=== PATIENT | female | born 1965 | race Caucasian/White ===

== ENCOUNTER → 2017-08-23 | Outpatient (CLI) | payer BC ==
[~2017-08-23] MED LIST: ACET-1256 PO; ALBUAER2 INH; BCPILLS PO; CHOL100010 PO; CLR10 PO; DIPH25CA65 PO; GABA100C13 PO; GABA400C PO; LORA-741 PO; MELO7.5T5 PO; OMEP40CA PO; PSEU30TA20 PO
== END | disposition home or self-care (01) ==
LOC: C.LABMFLN 08:48
PROVIDERS: ATTEND Family Medicine
DX: M13.0 Polyarthritis, unspecified (principal)